=== PATIENT | male | born 1980 ===

== ENCOUNTER 2020-11-24 15:59 | Outpatient (CLI) | payer OTHER | END 2020-11-24 16:07 | disposition home or self-care (01) | LOC: RAD 15:59 | PROVIDERS: ATTEND Orthopaedic Surgery Pediatric Orthopaedic Surgery | DX: M25.561 Pain in right knee (principal); M25.461 Effusion, right knee ==

== ENCOUNTER → 2023-01-11 | Emergency (ER) | payer OTHER ==
[~2023-01-11] VITALS: Ht 177.8 cm; Wt 140.6 kg
[~2023-01-11] MED LIST: AMLODIPINE-OLM1 EAC3; COZAAR100 MG; COZAAR100 MG PO; DOXYCYCLINE HY100 MG PO; GABAPENTIN100 M2 PO; KETO10TA2 PO
== END | disposition home or self-care (01) ==
LOC: ER 08:09
DX: M54.9 Dorsalgia, unspecified (principal); I10 Essential (primary) hypertension